=== PATIENT | female | born 1995 | race Hispanic/Latino ===

== ENCOUNTER 2017-11-30 17:12 | Emergency (ER) | payer OTHER ==
[2017-11-30 17:28] VITALS: BP 163/73; PULSE 86; RESP 16; TEMP 98; O2SAT 100
--- NOTE | 2017-11-30 17:38 | ED PDOC ---
Upper Extremity Pain/Injury Time Seen by Provider: 11/30/17 17:34 Chief Complaint (Nursing): Upper Extremity Problem/Injury Chief Complaint (Provider): left shoulder pain History Per: Patient Additional Complaint(s): 22-year-old right-hand dominant female presents with left shoulder pain 1 week. Patient did fall a week ago injuring both knees and she does not recall injury to left shoulder but states it is possible she did injure her shoulder at time of that fall. No meds taken for pain relief. No associated chest pain, shortness of breath or dyspnea on exertion. Patient was seen last week at urgent care facility and was told to come to ED to obtain Doppler of left upper extremity. Patient states she had an EKG done at urgent care facility which was normal. Patient states pain radiates from left shoulder down her arm on occasion and also into left side of neck. PMD: none Past Medical History Reviewed: Historical Data, Nursing Documentation, Vital Signs Vital Signs: Last Vital Signs Temp 98.0 F 11/30/17 17:25 Pulse 86 11/30/17 17:25 Resp 16 11/30/17 17:25 BP 163/73 H 11/30/17 17:25 Pulse Ox 100 11/30/17 17:25 - Medical History PMH: No Chronic Diseases - Surgical History Surgical History: No Surg Hx - Family History Family History: States: No Known Family Hx - Living Arrangements Living Arrangements: With Family - Home Medications Home Medications: Ambulatory Orders Medication Instructions Recorded Cyclobenzaprine [Cyclobenzaprine 10 mg PO TID PRN #20 tab 11/30/17 HCl] Naproxen [Naprosyn] 500 mg PO BID #20 tab 11/30/17 - Allergies Allergies/Adverse Reactions: Allergies Allergy/AdvReac Type Severity Reaction Status Date / Time No Known Allergies Allergy Verified 11/30/17 17:25 Review of Systems ROS Statement: Except As Marked, All Systems Reviewed And Found Negative Constitutional: Negative for: Fever Cardiovascular: Negative for: Chest Pain Respiratory: Negative for: Cough Gastrointestinal: Negative for: Nausea, Vomiting Musculoskeletal: Positive for: Shoulder Pain (left). Negative for: Neck Pain Neurological: Negative for: Headache, Dizziness Physical Exam - Reviewed Nursing Documentation Reviewed: Yes Vital Signs Reviewed: Yes - Physical Exam Appears: Positive for: Well, Non-toxic, No Acute Distress Skin: Negative for: Rash Eye Exam: Positive for: Normal appearance Neck: Positive for: Pain On Movement Of Neck (Mild pain to left lateral neck with full rom) Cardiovascular/Chest: Positive for: Regular Rate, Rhythm Respiratory: Positive for: Normal Breath Sounds. Negative for: Wheezing, Respiratory Distress Extremity: Positive for: Other (Slight swelling noted to left upper extremity, full range of motion of left shoulder, elbow and wrist, strong left handgrip, normal distal sensation) Neurologic/Psych: Positive for: Alert, pressing machine tender II-XII (grossly intact), Oriented, Gait (steady). Negative for: Motor/Sensory Deficits, Aphasia, Facial Droop - Laboratory Results Urine POC: Negative - ECG O2 Sat by Pulse Oximetry: 100 Pulse Ox Interpretation: Normal - Other Rad Left shoulder x-ray X-Ray: Interpreted by Me, Viewed By Me X-Ray Interpretation: no fx, no dis Duplex left arm X-Ray: Read By Radiologist X-Ray Interpretation: no DVT Medical Decision Making Medical Decision Makin22 year old with left shoulder pain for 1 week Plan: test PO motrin and tylenol Duplex of left arm X-ray left shoulder Patient is aware of diagnostic testing results, I'll caution tensor. Sling to left arm was declined. Prescriptions given for Naprosyn and Flexeril. Patient was instructed to follow-up with orthopedist for any persistent symptoms. Disposition - Clinical Impression Clinical Impression: Shoulder sprain - Patient ED Disposition Is Patient to be Admitted: No Counseled Patient/Family Regarding: Studies Performed, Diagnosis, Need For Followup, Rx Given - Disposition Referrals: Pritesh Chavez MD [Staff Provider] - Disposition: Routine/Home Disposition Time: 19:16 Condition: STABLE Additional Instructions: Rest, ice and elevate affected area. Take prescription meds as directed as needed for pain. If symptoms persist follow up with primary doctor or with orthopedist. Prescriptions: Cyclobenzaprine [Cyclobenzaprine HCl] 10 mg PO TID PRN #20 tab PRN Reason: Muscle Spasm Naproxen [Naprosyn] 500 mg PO BID #20 tab Instructions: Shoulder Sprain (DC) Forms: [employer] (Cameroonian)
--- NOTE | 2017-12-01 11:33 | RAD ---
PROCEDURE: Radiographs of the Left Shoulder HISTORY: pain COMPARISON: No prior. FINDINGS: BONES: Normal. No fracture. JOINTS: Normal. Glenohumeral and acromioclavicular joints preserved. No osteoarthritis. SOFT TISSUES: Normal. OTHER FINDINGS: None. IMPRESSION: Normal radiographs of the left shoulder.
--- NOTE | 2017-12-02 09:29 | US ---
PROCEDURE: Left Upper Extremity Venous Doppler HISTORY: arm pain, swelling COMPARISON: None available. TECHNIQUE: Left upper extremity deep veins, including the lower internal jugular, subclavian, axillary and brachial veins, were evaluated flow, compressibility and respiratory phasicity. Basilic, cephalic, radial and ulnar veins were also evaluated. FINDINGS: Normal flow, compressibility and respiratory phasicity was observed in the the left upper extremity deep veins. IMPRESSION: No evidence of deep venous thrombosis.
== END 2017-11-30 19:24 | disposition home or self-care (01) ==
LOC: H.ER 17:12
DX: S43.402A Unspecified sprain of left shoulder joint, initial encounter (principal); W19.XXXA Unspecified fall, initial encounter; Y92.89 Other specified places as the place of occurrence of the external cause

== ENCOUNTER 2017-12-19 21:35 | Emergency (ER) | payer OTHER ==
--- NOTE | 2017-12-19 22:19 | ED PDOC ---
HPI: Chest Pain Time Seen by Provider: 12/19/17 21:53 Chief Complaint (Nursing): Chest Pain Chief Complaint (Provider): chest pain History Per: Patient History/Exam Limitations: no limitations Onset/Duration Of Symptoms: Hrs Current Symptoms Are (Timing): Better Additional Complaint(s): 22 y/o female presents for evaluation of chest tightness x 3 hours. Patient states she was cooking dinner when pain started. Associated shortness of breath , palpitations. Patient states symptoms better upon arrival to ED. Patient also reports excessive belching x 2 weeks after finishing a course of prednisone for bronchitis, states belching started tonight before chest pain started. Denies fever, headache, dizziness, nausea/vomiting, abdominal pain, leg pain/swelling, recent travel. + OCP use. Past Medical History Reviewed: Historical Data, Nursing Documentation, Vital Signs Vital Signs: Last Vital Signs Temp 98.1 F 12/19/17 21:41 Pulse 77 12/20/17 00:08 Resp 16 12/20/17 00:08 BP 122/74 12/20/17 00:08 Pulse Ox 99 12/20/17 00:08 - Medical History PMH: No Chronic Diseases - Surgical History Surgical History: Tonsillectomy - Family History Family History: States: No Known Family Hx - Social History Current smoker - smoking cessation education provided: No Alcohol: Social Drugs: Cannabis - Home Medications Home Medications: Ambulatory Orders Medication Instructions Recorded Cyclobenzaprine [Cyclobenzaprine 10 mg PO TID PRN #20 tab 11/30/17 HCl] Naproxen [Naprosyn] 500 mg PO BID #20 tab 11/30/17 Famotidine [Pepcid] 20 mg PO BID #10 tab 12/20/17 - Allergies Allergies/Adverse Reactions: Allergies Allergy/AdvReac Type Severity Reaction Status Date / Time No Known Allergies Allergy Verified 11/30/17 17:25 Review of Systems ROS Statement: Except As Marked, All Systems Reviewed And Found Negative Cardiovascular: Positive for: Chest Pain, Palpitations Respiratory: Positive for: Shortness of Breath Physical Exam - Reviewed Nursing Documentation Reviewed: Yes Vital Signs Reviewed: Yes - Physical Exam Appears: Positive for: Well, Non-toxic, No Acute Distress Head Exam: Positive for: ATRAUMATIC, NORMAL INSPECTION, NORMOCEPHALIC Skin: Positive for: Normal Color Eye Exam: Positive for: Normal appearance ENT: Positive for: Normal ENT Inspection Cardiovascular/Chest: Positive for: Regular Rate, Rhythm Respiratory: Positive for: Normal Breath Sounds Gastrointestinal/Abdominal: Positive for: Normal Exam Back: Positive for: Normal Inspection Extremity: Positive for: Normal ROM Neurologic/Psych: Positive for: Alert, Oriented - Laboratory Results Result Diagrams: 12/19/17 22:51 12/19/17 22:51 - ECG ECG: Positive for: Viewed By Me (reviewed by ED attending) ECG Rhythm: Positive for: Sinus Tachycardia (103bpm) O2 Sat by Pulse Oximetry: 96 - Radiology X-Ray: Viewed By Me X-Ray Interpretation: No Acute Disease - Progress ED Course And Treament: labs, ekg, chest xray Patient educated on findings, discharged with instructions to follow up PMD 2-3 days. Rx pepcid provided Return precautions given. Disposition - Clinical Impression Clinical Impression: Atypical chest pain - Patient ED Disposition Is Patient to be Admitted: No Counseled Patient/Family Regarding: Studies Performed, Diagnosis, Need For Followup, Rx Given - Disposition Disposition: Routine/Home Disposition Time: 01:05 Condition: IMPROVED Prescriptions: Famotidine [Pepcid] 20 mg PO BID #10 tab Instructions: Chest Pain That Is Not Caused by the Heart (DC) Forms: [employer] (Bulgarian)
[2017-12-19 22:58] LABS: BASO % 0.2 % (0.0-2.0); EOS # 0.1 K/uL (0.0-0.7); HEMOGLOBIN 12.4 g/dL (12.0-16.0); LYMPH # 2.2 K/uL (1.0-4.3); LYMPH % 22.4 % (20.0-40.0); MEAN CORPUSCULAR HEMOGLOBIN 28.1 pg (27.0-31.0); MEAN CORPUSCULAR HGB CONC 32.7 g/dL (33.0-37.0); MEAN PLATELET VOLUME 8.6 fl (7.2-11.7); MONO % 10.2 % (0.0-10.0); NEUT # 6.6 K/uL (1.8-7.0); NEUT % 66.2 % (50.0-75.0); RBC 4.41 Mil/uL (3.80-5.20); RED CELL DISTRIBUTION WIDTH 13.8 % (11.5-14.5)
[2017-12-19 23:07] LABS: ALB/GLOB RATIO 1.4 (1.0-2.1); ALBUMIN 4.3 g/dL (3.5-5.0); ALT/SGPT 47 U/L (9-52); AST/SGOT 19 U/L (14-36); BLOOD UREA NITROGEN 10 mg/dl (7-17); CALCIUM 9.8 mg/dL (8.4-10.2); GFR AFRICAN-AMERICAN > 60; GFR NON-AFRICAN AMERICAN > 60
[2017-12-20 00:09] VITALS: RESP 16
[2017-12-20 01:38] VITALS: BP 125/78; PULSE 76; TEMP 98; O2SAT 99
--- NOTE | 2017-12-20 06:34 | RAD ---
HISTORY: chest pain COMPARISON: No prior. TECHNIQUE: Chest PA and lateral FINDINGS: LUNGS: No active pulmonary disease. PLEURA: No significant pleural effusion identified. No pneumothorax apparent. CARDIOVASCULAR: Normal. OSSEOUS STRUCTURES: No significant abnormalities. VISUALIZED UPPER ABDOMEN: Normal. OTHER FINDINGS: None. IMPRESSION: No active disease.
--- NOTE | 2017-12-20 18:43 | CARD ---
APPROVED REPORT EKG Measurement Heart [id number] ID [id number] <Conclusion> Sinus tachycardia Possible Left atrial enlargement Borderline ECG
== END 2017-12-20 01:19 | disposition home or self-care (01) ==
LOC: H.ER 21:35
DX: R07.89 Other chest pain (principal)

== ENCOUNTER 2018-01-24 19:17 | Emergency (ER) | payer OTHER ==
--- NOTE | 2018-01-24 20:59 | ED PDOC ---
HPI: General Adult Time Seen by Provider: 01/24/18 20:49 Chief Complaint (Nursing): Female Genitourinary Chief Complaint (Provider): dysuria, left leg pain History Per: Patient Additional Complaint(s): 22-year-old female presents with dysuria and hematuria that started yesterday. Patient thinks she might have UTI. She denies abdominal or back pain, no nausea or vomiting. No fever or chills. Patient also has had intermittent pain and swelling to left leg x 1 week with no recent fall or trauma. She describes it as a pulsating feeling. Patient currently takes control pills daily. She denies recent travel. No chest pain, shortness of breath or dyspnea on exertion. Right leg unaffected. Patient denies any concern for STD. PMD: none Past Medical History Reviewed: Historical Data, Nursing Documentation, Vital Signs Vital Signs: Last Vital Signs Temp 98.5 F 01/24/18 20:27 Pulse 93 H 01/24/18 20:27 Resp 16 01/24/18 20:27 BP 131/94 H 01/24/18 20:27 Pulse Ox 98 01/24/18 21:53 - Medical History PMH: No Chronic Diseases - Surgical History Surgical History: Tonsillectomy - Family History Family History: States: No Known Family Hx - Living Arrangements Living Arrangements: With Friends/Others - Social History Current smoker - smoking cessation education provided: No Alcohol: None Drugs: Cannabis - Home Medications Home Medications: Ambulatory Orders Medication Instructions Recorded Cyclobenzaprine [Cyclobenzaprine 10 mg PO TID PRN #20 tab 11/30/17 HCl] Naproxen [Naprosyn] 500 mg PO BID #20 tab 11/30/17 Famotidine [Pepcid] 20 mg PO BID #10 tab 12/20/17 Ciprofloxacin HCl [Cipro] 500 mg PO BID #14 tablet 01/24/18 Naproxen [Naprosyn] 500 mg PO BID #20 tab 01/24/18 - Allergies Allergies/Adverse Reactions: Allergies Allergy/AdvReac Type Severity Reaction Status Date / Time No Known Allergies Allergy Verified 11/30/17 17:25 Review of Systems ROS Statement: Except As Marked, All Systems Reviewed And Found Negative Constitutional: Negative for: Fever, Chills Cardiovascular: Negative for: Chest Pain Respiratory: Negative for: Cough Gastrointestinal: Negative for: Nausea, Vomiting, Abdominal Pain Genitourinary Female: Positive for: Dysuria, Frequency, Hematuria. Negative for : Incontinence, Vaginal Discharge, Vaginal Bleeding, Pelvic Pain Musculoskeletal: Positive for: Leg Pain (left) Physical Exam - Reviewed Nursing Documentation Reviewed: Yes Vital Signs Reviewed: Yes - Physical Exam Appears: Positive for: Well, Non-toxic, No Acute Distress Skin: Positive for: Normal Color. Negative for: Rash Eye Exam: Positive for: Normal appearance Neck: Positive for: Normal Cardiovascular/Chest: Positive for: Regular Rate, Rhythm Respiratory: Positive for: Normal Breath Sounds Gastrointestinal/Abdominal: Positive for: Soft. Negative for: Tenderness, Distended, Guarding, Rebound Back: Positive for: Normal Inspection. Negative for: L CVA Tenderness, R CVA Tenderness, Vertebral Tenderness Extremity: Positive for: Other (Mild tenderness and swelling to left calf and posterior left knee, full range of motion left hip, knee and ankle) Neurologic/Psych: Positive for: Alert, Oriented, Gait (steady) - Laboratory Results Urine POC: Negative Urine dip results: Positive for: Leukocyte Esterase (trace), Blood (moderate). Negative for: Nitrate, Ketones, Glucose, Bilirubin, Protein - ECG O2 Sat by Pulse Oximetry: 98 Pulse Ox Interpretation: Normal - Other Rad Doppler Left leg X-Ray: Read By Radiologist X-Ray Interpretation: no DVT Medical Decision Making Medical Decision Makin22 y/o female with dysuria and left leg pain Plan: Pain meds declined Doppler left leg Urine dip and test Patient aware of diagnostic testing results, all questions answered. Prescriptions for Cipro Naprosyn provided. Patient was advised to drink plenty of fluids and was instructed to follow-up with primary doctor in 2-3 days. Disposition - Clinical Impression Clinical Impression: Muscle strain of left lower extremity, Urinary tract infection - Patient ED Disposition Is Patient to be Admitted: No Counseled Patient/Family Regarding: Studies Performed, Diagnosis, Need For Followup, Rx Given - Disposition Referrals: [facility] [Outside] Disposition: Routine/Home Disposition Time: 22:37 Condition: STABLE Additional Instructions: Take prescription meds as directed. Rest and drink plenty of fluids. Follow-up with clinic or primary doctor. Prescriptions: Ciprofloxacin HCl [Cipro] 500 mg PO BID #14 tablet Naproxen [Naprosyn] 500 mg PO BID #20 tab Instructions: Urinary Tract Infection, Adult (DC), Lower Extremity Muscle Strain Forms: [employer] (Indian)
--- NOTE | 2018-01-24 22:31 | US ---
EXAM: US Duplex Left Lower Extremity Veins CLINICAL HISTORY: 22 years old, female; Pain; Leg, lower; Left; Additional info: Pain and swelling to left leg TECHNIQUE: Real-time duplex ultrasound scan of the left lower extremity veins integrating B-mode two-dimensional vascular structure, Doppler spectral analysis, color flow Doppler imaging and compression. COMPARISON: No relevant prior studies available. FINDINGS: Deep veins: Normal color and spectral Doppler flow. Normal compressibility. No deep vein thrombosis. Superficial veins: No thrombosis. Soft tissues: No popliteal cyst. IMPRESSION: No evidence of DVT within left lower extremity.
[2018-01-25 00:13] VITALS: BP 119/72; PULSE 82; RESP 18; TEMP 98; O2SAT 100
== END 2018-01-24 22:45 | disposition home or self-care (01) ==
LOC: H.ER 19:17
DX: N39.0 Urinary tract infection, site not specified (principal); M79.605 Pain in left leg